=== PATIENT | male | born 1940 | race American Indian/Alaskan Native ===

== ENCOUNTER 2021-03-27 16:09 | Emergency (ER) | payer MEDICARE ==
--- NOTE | 2021-03-27 18:04 | Emergency Department Report ---
ED Altered Mental Status HPI - General Chief Complaint: Altered Mental Status Stated Complaint: ABD PAIN Time Seen by Provider: 03/27/21 17:29 Source: family Mode of arrival: Ambulatory Limitations: No Limitations - History of Present Illness Initial Comments: 80-year-old female with a past medical history of hypertension and prostate cancer presents to the hospital for evaluation. states that patient needed to follow-up with GI doctors for chronic intermittent abdominal pain. He refused to see GI and other physicians for medical clearance for GI follow-up. She expresses that for last few weeks his memory problems have worsened. He woke up in the middle the night stating that he had a urology appointment with Dr. Garcia which is not true. He also believe that there was water in in their home but it was not the case. is unclear whether or not patient has a previous diagnosis of dementia but does states he has had memory problems that have worsened. She endorses that his appetite has decreased and he has had a 20 pound weight loss in the last 3 months. She states that the GI nurse was concerned about patient's breathing but patient does not endorse any shortness of breath, cough, fever and does not have any respiratory distress in the ED - Related Data Allergies Allergy/AdvReac Type Severity Reaction Status Date / Time No Known Allergies Allergy Unverified 03/27/21 17:01 ED Review of Systems ROS: Stated complaint: ABD PAIN Other details as noted in HPI Comment: All other systems reviewed and negative ED Past Medical Hx - Past Medical History Hx Hypertension: Yes ED Physical Exam - General Limitations: No Limitations - Other Other exam information: General: No acute distress Head: Atraumatic Eyes: normal appearance ENT: Moist mucous membranes Neck: Normal appearance, no midline tenderness Chest: Clear to auscultation bilaterally CV: Regular rate and rhythm Abdomen: Soft, normal bowel sounds, nontender, nondistended, no rebound or guarding Back: Normal inspection Extremity: Normal inspection, full range of motion Neuro: Alert O x 3, no facial asymmetry, speech clear, no gross motor sensory deficit, mild intermittent tremor Psych: Appropriate behavior Skin: No rash ED Course Vital Signs 03/27/21 17:04 Temperature 97.7 F Pulse Rate 95 H Respiratory 20 Rate Blood Pressure 105/68 [Right] O2 Sat by Pulse 94 Oximetry - Consultations Consultation #1: 03/27/21 18:06 I spoke to patient's primary care doctor Dr. Wilfrido Fierro by my concerns about patient's visit today and unclear reason for ED visit. He states that patient was recently seen at a [facility] hospital and had CT head, CT angiogram and also has had recent MRI of the abdomen. Patient was subsequently referred to GI follow-up due to reports of weight loss. Even though endorses a 20 pound weight loss in the last 3 months he states that on their scale he has only lost 2 pounds during the same amount of time. I informed him about my concerns of worsening dementia which is interfering with outpatient follow-up and is becoming difficult for the to handle. He will reach out to family for follow-up visit - Medical Decision Making 80-year-old male presents with because he was advised to come to the ER for evaluation due to refusal of outpatient work-up for intermittent chronic abdominal pain and possible weight loss. Patient is alert and oriented x3 but appears to be having signs and symptoms of dementia. Patient's PMD confirmed that he has had recent outpatient neurologic work-up and imaging, labs, and MRI of the abdomen and was subsequently referred to GI. The GI nurse informed family to come to the ED due to concerns of breathing difficulty and refusal of outpatient work-up. In the ED patient does not endorse any shortness of breath, cough, fever and has a room air saturation of 94%. He is ambulating without difficulty and denies chest pain or abdominal pain today. PMD will reach out to family/patient for follow-up and further management Critical Care Time: No Critical care attestation.: If time is entered above; I have spent that time in minutes in the direct care of this critically ill patient, excluding procedure time. ED Disposition Clinical Impression: Dementia, Chronic abdominal pain Disposition: 01 HOME / SELF CARE / HOMELESS Is pt being admited?: No Does the pt Need Aspirin: No Condition: Stable Instructions: Dementia, Abdominal Pain, Adult Additional Instructions: I contacted your doctor. He confirmed that you have recently received work-up including CAT scan of the head, CT angiogram of the head, and MRI of the abdomen and was subsequently referred to GI for further work-up. I spoke to your doctor about my concern of dementia and he should be reaching out to you for follow-up visit Referrals: WILFRIDO FIERRO MD [Staff Physician] - 3-5 Days Time of Disposition: 18:06
[2021-03-27 18:34] VITALS: BP 108/70
== END 2021-03-27 18:32 | disposition home or self-care (01) ==
LOC: ED 16:09
DX: F03.90 Unspecified dementia, unspecified severity, without behavioral disturbance, psychotic disturbance, mood disturbance, and anxiety (principal); G89.29 Other chronic pain; R10.9 Unspecified abdominal pain; I10 Essential (primary) hypertension
CPT/HCPCS: 99282

== ENCOUNTER 2021-07-29 06:23 | Observation (INO) | payer MEDICARE ==
[2021-07-29 07:33] LABS: Hematocrit 38.6 % (35.5-45.6); Hemoglobin 12.9 gm/dl (11.8-15.2); Mean Corpuscular HGB Conc 33 % (32-34); Mean Corpuscular Volume 89 fl (84-94); Platelet Count 141 K/mm3 (140-440); Red Blood Count 4.33 M/mm3 (3.65-5.03); Red Cell Distribution Width 13.4 % (13.2-15.2)
[2021-07-29 07:43] LABS: BUN/Creatinine Ratio 17; Blood Urea Nitrogen 19 mg/dL (9-20); Calcium 10.2 mg/dL (8.4-10.2); Hemolysis Index 3
[2021-07-29 07:54] LABS: INR 0.91 (0.87-1.13)
[2021-07-29] MEDS: SODIUM CHLORIDE 0.9% 500 ML 500 ML IV SCH ×3 (07:54→10:00)
[2021-07-29 08:26] LABS: Total Cells Counted 100
[2021-07-29 08:30] LABS: Ovalocytes Rare; Poikilocytosis Few; Schistocytes Rare
[2021-07-29 08:31] LABS: Large Platelets Rare; Platelet Estimate Consistent w Auto; Target Cells Rare
[2021-07-29] MEDS: NITROGLYCERIN SYRINGE 3 ML ONE ×2 (08:48→10:06)
[2021-07-29] MEDS: MIDAZOLAM 2 MG/2 ML INJ ONE ×2 (08:51→10:05)
[2021-07-29] MEDS: fentaNYL 100 MCG/2 ML INJ ONE ×2 (08:51→10:04)
[2021-07-29] MEDS: LIDOCAINE (1%) 10 MG/1 ML VIAL 20 ML MDV ONE ×2 (08:52→10:05)
[2021-07-29] MEDS: HEPARIN 10,000 UNITS/10 ML VIAL ONE ×4 (08:52→10:22)
[2021-07-29] MEDS: VERAPAMIL 5 MG/2 ML INJ ONE ×2 (08:53→10:06)
[2021-07-29] MEDS ORDERED: ATROPINE 0.1% (1 MG/10 ML) CARDIAC SYRINGE ONE (09:19)
[2021-07-29] MEDS: HEPARIN/NS 5000 UNIT/500ML 1,000 ML IR ONE ×2 (09:27→10:07)
--- NOTE | 2021-07-29 10:45 | Cardiac Catherization Report ---
DATE OF SERVICE: 07/29/2021 REASON FOR PROCEDURE: The patient is an 80-year-old man with unstable angina and abnormal thallium stress test. A week ago, he underwent a cardiac catheterization that revealed severe 2-vessel coronary artery disease. At that time, he underwent ad hoc coronary angioplasty and stenting of the LAD. He returns today to the laboratory director for staged second vessel intervention to a 90% stenosis of the proximal right coronary artery. PROCEDURES: 1. Limited right coronary angiography. 2. Coronary angioplasty and stenting of the proximal right coronary artery. 3. Sedation time start 08, end 1020. DESCRIPTION OF PROCEDURE: The patient was prepped and draped in a sterile fashion after informed consent. The right radial cath site was prepped and draped after negative Kailash's test. The right radial artery was entered using Seldinger technique followed by placement of a 6-Cameroonian hydrophilic sheath. Routine radial cocktail was administered via the sheath. We selected a 6-Cameroonian hockey stick guiding catheter and advanced to the right coronary ostium. Angiograms of the right coronary artery were taken. A 0.014 inch [employer] 50 guidewire was then advanced into the vessel, across the lesional segment. Following optimal wire placement, we then predilated the stenosis using a 3.4 mm x 12 mm balloon catheter. Following balloon angioplasty, we then deployed a 3.5 x 12 mm drug-eluting stent covering the lesional segment and inflated the stent to optimal pressures. Following stenting, there was an excellent angiographic result, zero residual stenosis and JACKSON 3 flow maintained down the vessel. The catheters and the wires were then removed, the sheath was removed and hemostasis achieved using a TR band. The patient was returned to the postprocedure unit in stable condition. There were no complications. CONCLUSION: Successful second vessel angioplasty and stenting of the proximal right coronary artery, excellent angiographic result following deployment of a 3.5 x 12 mm drug-eluting stent. TID: [id number] RECEIPT: [id number] MESERET/JEFFERY
--- NOTE | 2021-07-29 12:15 | Event Note ---
Date: 07/29/21 Patient underwent successful second vessel angioplasty and stenting of the proximal right coronary artery, excellent angiographic result, 0 residual stenosis, JACKSON-3 flow and no complications. He will be admitted for 23 hours post PCI observation. Continue guideline directed medical therapy including dual oral antiplatelet therapy.
[2021-07-29] MEDS ORDERED: ONDANSETRON 4 MG/2 ML INJ IV PRN (12:16)
[2021-07-29] MEDS ORDERED: traMADol 50 MG TAB PO PRN (12:16)
[2021-07-29] MEDS ORDERED: ZOLPIDEM 5 MG TAB PO PRN (12:16)
[2021-07-29] MEDS ORDERED: SODIUM CHLORIDE 0.9% 1000 ML 1,000 ML IV SCH (12:30)
[2021-07-29] MEDS ORDERED: HYDROcodone/ACETAMINOPHEN 5-325 MG TAB PO PRN (12:54)
[2021-07-29] MEDS ORDERED: CLOPIDOGREL 75 MG TAB PO ONE (13:00)
[2021-07-29] MEDS ORDERED: ACETAMINOPHEN 325 MG TAB PO PRN ×2 (13:00)
[2021-07-29] MEDS ORDERED: CLOPIDOGREL 75 MG TAB PO SCH (13:00)
[2021-07-29] MEDS ORDERED: LOSARTAN 25 MG TAB PO SCH (13:00)
[2021-07-29] MEDS ORDERED: NON-FORMULARY EACH (Atorvastatin Calcium [Lipitor] 80 MG Tablet) PO SCH (22:00)
[2021-07-29] MEDS ORDERED: SODIUM CHLORIDE 0.9% 250ML 250 ML IV ONE (23:50)
[2021-07-30 04:59] LABS: Hematocrit 32.7 % (35.5-45.6); Hemoglobin 10.9 gm/dl (11.8-15.2); Mean Corpuscular HGB Conc 33 % (32-34); Mean Corpuscular Volume 89 fl (84-94); Platelet Count 120 K/mm3 (140-440); Red Blood Count 3.68 M/mm3 (3.65-5.03); Red Cell Distribution Width 13.2 % (13.2-15.2)
[2021-07-30 05:18] LABS: BUN/Creatinine Ratio 15; Blood Urea Nitrogen 15 mg/dL (9-20); Hemolysis Index 2
[2021-07-30 06:22] LABS: Total Cells Counted 100
[2021-07-30 06:23] LABS: Ovalocytes Few; Poikilocytosis Rare
[2021-07-30 06:24] LABS: Large Platelets Rare; Platelet Estimate Cons
--- NOTE | 2021-07-30 08:32 | XRay Report ---
CHEST 1 VIEW INDICATION: post pci. COMPARISON: 07/23/2021 FINDINGS: Support devices: None. Heart: Within normal limits. Lungs/Pleura: No acute air space or interstitial disease. No pleural effusion or pneumothorax is dete cted. Additional findings: The left hemidiaphragm remains mildly elevated. IMPRESSION: No acute findings. Signer Name: Leandro Green Jr, MD Signed: 07/30/2021 8:27 AM Workstation Name: [id number]
[2021-07-30 08:35] VITALS: BP 106/63
[2021-07-30] MEDS ORDERED: METOPROLOL TARTRATE 25 MG TAB PO SCH (10:00)
[2021-07-30] MEDS ORDERED: DONEPEZIL 10 MG TAB PO SCH (10:00)
[2021-07-30] MEDS ORDERED: FLU VACC QUAD 2021-22(6MOS UP)/PF 60 MCG/0.5 ML SYRINGE IM ONE (10:00)
[2021-07-30] MEDS ORDERED: ASPIRIN EC 81 MG TAB PO SCH (10:00)
[2021-07-30] MEDS ORDERED: CLOPIDOGREL 75 MG TAB PO SCH (10:00)
--- NOTE | 2021-07-30 10:04 | Discharge Summary ---
Short Stay Discharge Plan Activity: advance as tolerated Weight Bearing Status: Full Weight Bearing Diet: low fat, low cholesterol, low salt Wound: keep clean and dry Special Instructions: smoking cessation, no heavy lifting (3 days) Additional Instructions: Metoprolol on temporary hold due to resting sinus bradycardia with heart rate low 50s. Continue other medications including aspirin and clopidogrel. Follow- up with primary fabric sourcer Dr. Meléndez in 7 days. Follow up with: ASHLEE PATEL MD [Primary Care Provider] - 7 Days LINDA MELÉNDEZ MD [Staff Physician] - 7 Days
--- NOTE | 2021-08-05 17:52 | Electrocardiograph Report ---
[facility] Test Date: 2021-07-29 Test Time: 07:43:55 Pat Name: NANCY HEAD Department: Room: A471 Gender: M Structural Welder: KRISTY : 1940 Requested By: ROGELIO TOPETE Order Number: [id number] Reading MD: Rogelio Topete Measurements Intervals [place] Rate: 48 P: 64 ID: [id number] QRS: 34 QRSD: 92 T: 53 QT: 441 QTc: 396 Interpretive Statements Sinus bradycardia Consider left ventricular hypertrophy Early repolarization ST changes Compared to ECG 07/23/2021 07:12:17 No significant change Electronically Signed On 08-05-2021 17:52:08 EDT by Rogelio Topete
--- NOTE | 2021-08-05 17:54 | Electrocardiograph Report ---
[facility] Test Date: 2021-07-29 Test Time: 10:53:35 Pat Name: NANCY HEAD Department: Room: A471 Gender: M Sales Receptionist: KRISTY : 1940 Requested By: ROGELIO TOPETE Order Number: [id number] Reading MD: Rogelio Topete Measurements Intervals [place] Rate: 45 P: 47 MS: 162 QRS: 35 QRSD: 92 T: 47 QT: 452 QTc: 392 Interpretive Statements Marked sinus bradycardia Consider left ventricular hypertrophy Compared to ECG 07/29/2021 07:43:55 No significant changes Electronically Signed On 08-05-2021 17:53:30 EDT by Rogelio Topete
--- NOTE | 2021-08-05 18:04 | Electrocardiograph Report ---
[facility] Test Date: 2021-07-30 Test Time: 07:10:48 Pat Name: NANCY HEAD Department: Room: A471 1 Gender: M Script Editor: SUJATA : 1940 Requested By: ROGELIO TOPETE Order Number: [id number] Reading MD: Rogelio Topete Measurements Intervals [place] Rate: 54 P: 66 WA: 147 QRS: 39 QRSD: 89 T: 59 QT: 447 QTc: 425 Interpretive Statements Sinus bradycardia Early repolarization ST changes Consider left ventricular hypertrophy Compared to ECG 07/29/2021 10:53:35 No significant change Electronically Signed On 08-05-2021 18:03:55 EDT by Rogelio Topete
== END 2021-07-30 14:05 | disposition home or self-care (01) ==
LOC: CATHLABREC 06:23 → 4A 12:54
PROVIDERS: ADMIT Internal Medicine Cardiovascular Disease; ATTEND Internal Medicine Cardiovascular Disease
DX: I11.0 Hypertensive heart disease with heart failure (principal); I50.20 Unspecified systolic (congestive) heart failure; I20.0 Unstable angina; R06.00 Dyspnea, unspecified; Z79.899 Other long term (current) drug therapy; Z98.890 Other specified postprocedural states; Z98.61 Coronary angioplasty status; Z23 Encounter for immunization; Z71.85 Encounter for immunization safety counseling
CPT/HCPCS: 36415; 71045; 80048; 82962; 84484; 85025; 85610; 85730; 92928; 93005; C1769; C1874; C1887; C1894; C9600; G0008; G0378; J1644; J1815; J2250; J3010; J7040; J7050; 85007; 90471; 90686; J0461; Q9967